=== PATIENT | male | born 1975 ===

== ENCOUNTER 2021-08-09 08:55 | Day surgery (SDC) | payer OTHER ==
[2021-08-07 16:11] VITALS: BMI 36.6
--- NOTE | 2021-08-07 16:47 | P.HPIHPCON ---
History of Present Illness H&P Date: 08/07/21 Chief Complaint: Left ureteral stone This is a 46-year-old male with history of a 6 mm left-sided proximal stone, he is symptomatically from his stone. Option of left-sided ureteroscopy with holmium laser lithotripsy versus ESWL was discussed in detail. He agreed to proceed with left-sided ureteroscopy with holmium laser. Discussed risk which includes but not limited to bleeding, infection, injury to the ureter. Discussed also with him risk from anesthesia. He understood all the risk and agreed to proceed with left-sided ureteroscopy with holmium laser lithotripsy stone basketing and stent insertion Consent for Procedure: I have explained the operation/procedure to the patient, including the risks, benefits, side effects, alternative therapies (including not receiving the proposed treatment or service), the likelihood of the patient achieving his/her goals, and potential recuperation problems for the procedure/sedation/analgesia, as well as any blood products, if indicated. I also explained to the patient the risks, benefits and side effects of the alternatives, as well as the risks related to not receiving the proposed procedure, care, treatment, or services. Past Medical History Past Medical History: GERD/Reflux, Hyperlipidemia, Hypertension History of Any Multi-Drug Resistant Organisms: None Reported Past Surgical History: No Surgical Hx Reported Additional Past Surgical History / Comment(s): EGD. Past Anesthesia/Blood Transfusion Reactions: No Reported Reaction Past Psychological History: No Psychological Hx Reported Smoking Status: Never smoker Past Alcohol Use History: Occasional Past Drug Use History: None Reported - Past Family History Father Family Medical History: Cancer Additional Family Medical History / Comment(s): Rectal cancer. Medications and Allergies Home Medications Medication Instructions Recorded Confirmed Type Evolocumab [Repatha Syringe] 0 mg SQ Q14D 08/07/21 08/07/21 History HYDROcodone/APAP 5-325MG [Jelm 1 tab PO HS 08/07/21 08/07/21 History 5-325] Ketorolac [Toradol] 10 mg PO Q6HR PRN 08/07/21 08/07/21 History Losartan Potassium 100 mg PO HS 08/07/21 08/07/21 History NIFEdipine [Procardia XL] 60 mg PO HS 08/07/21 08/07/21 History Omeprazole 20 mg PO DAILY PRN 08/07/21 08/07/21 History Rosuvastatin [Crestor] 10 mg PO HS 08/07/21 08/07/21 History Tamsulosin [Flomax] 0.4 mg PO DAILY 08/07/21 08/07/21 History Allergies Allergy/AdvReac Type Severity Reaction Status Date / Time Penicillins Allergy Rash/Hives Verified 08/07/21 16:11 Surgical - Exam - General no distress, no pain - Eyes normal ocular movement, no pale - ENT normal nares, normal mucosa - Respiratory normal expansion, normal respiratory effort Assessment and Plan Assessment: OR for left-sided ureteroscopy with holmium laser lithotripsy stone basketing and stent insertion
[~2021-08-09 08:55] MED LIST: CIPROFLOXACIN/DEXTROSE PMX 400 MG in DEXTROSE/WATER 1 200ML.BAG IVPB PRN; DEXAMETHASONE SOD PHOSPHATE 4 MG/ML 1 ML VIAL IV ONE; HYDROmorphone 0.5 MG/0.5 ML SYRINGE IVP PRN; LACTATED RINGERS 1,000 ML IV SCH; MIDAZOLAM 2 MG/2 ML VIAL IV PRN; ONDANSETRON 4 MG/2 ML VIAL IVP ONE; SCOPOLAMINE 1 MG/72 HR PATCH TRANSDERM ONE
--- NOTE | 2021-08-09 09:14 | XR ---
EXAMINATION TYPE: XR KUB DATE OF EXAM: 08/09/2021 COMPARISON: None INDICATION: Left renal stone preop TECHNIQUE: Single view abdomen upright view FINDINGS: There is a nonspecific bowel gas pattern. Air is within the colon. There is an air-fluid level within the small bowel loops within the midabdomen. Psoas margins are normal. No organomegaly is present. A 0.8 cm calcification overlies the left L4 transverse process. IMPRESSION: 1. 0.8 cm proximal left ureteral stone.
[2021-08-09] MEDS ORDERED: LACTATED RINGERS 1,000 ML IV ONE (09:23)
[2021-08-09 09:26] VITALS: TEMP 97.3
[2021-08-09] MEDS ORDERED: MIDAZOLAM 2 MG/2 ML VIAL ONE (10:38)
[2021-08-09] MEDS ORDERED: SUCCINYLCHOLINE CHLORIDE 100 MG/5 ML SYR IV ONE (10:38)
[2021-08-09] MEDS ORDERED: PROPOFOL 10 MG/ML 50 ML VIAL IV ONE (10:38)
[2021-08-09] MEDS ORDERED: fentaNYL (PF) 50 MCG/ML 2 ML AMP ONE (10:38)
[2021-08-09] MEDS ORDERED: LIDOCAINE 2% INJ 20 MG/ML (2 ML VIAL) ONE (10:38)
[2021-08-09] MEDS ORDERED: IOPAMIDOL-370 50ML BTL MISCELLANE ONE (11:00)
--- NOTE | 2021-08-09 11:39 | P.OP ---
Date of Procedure: 08/09/21 Preoperative Diagnosis: left ureteral stone Postoperative Diagnosis: Same Procedure(s) Performed: Cystoscopy, left retrograde pyelogram, ureteroscopy and stent insertion Implants: 6-Nepalese by 26 cm stent in left ureter Anesthesia: ALAN Surgeon: Tim Bray Estimated Blood Loss (ml): 5 Pathology: none sent Condition: stable Disposition: PACU Indications for Procedure: This is a 46-year-old male with history of a 6 mm left-sided proximal stone, he is symptomatically from his stone. Option of left-sided ureteroscopy with holmium laser lithotripsy versus ESWL was discussed in detail. He agreed to proceed with left-sided ureteroscopy with holmium laser. Discussed risk which includes but not limited to bleeding, infection, injury to the ureter. Discussed also with him risk from anesthesia. He understood all the risk and agreed to proceed with left-sided ureteroscopy with holmium laser lithotripsy stone basketing and stent insertion Operative Findings: Left-sided proximal ureteral stone, proximal ureteral narrowing Description of Procedure: Patient brought to the operating room, general anesthesia was induced. He was prepped and draped in sterile fashion and placed in dorsal lithotomy position. Cystoscopy fitted with a 21-Nepalese sheath was inserted per urethra, cystoscopy was performed which showed no abnormality within the bladder. Attention was then carried to the left ureteral orifice, of note the left ureteral orifice was narrowed. At this time a wire was advanced through the ureteral orifice and a ureteral balloon dilator was passed over the wire, the ureteral orifice was dilated using a ureteral balloon dilator. Next a semirigid ureteroscope was inserted through the urethra and up the left ureteral orifice, the scope was advanced to the mid ureter, but I was not able to advance the scope further, retrograde pyelogram was performed through the scope which showed a filling defect at the UPJ at the level of the radiopaque stone with mild hydronephrosis. At this time a sensor wire was advanced through the ureteroscope past the stone into the renal pelvis and the scope was removed with the wire in place. Next a 1214 access sheath was passed over the wire into the proximal ureter. At this time the flexible ureteroscope was inserted through the access sheath, I attempted to pass the scope past the proximal ureter but of note the proximal ureter was narrowed. At this time the ureteroscope was withdrawn and a ureteral balloon dilator was passed over the wire and the into the proximal ureter, the ureter was dilated using the 12-Nepalese balloon dilator. Next the flexible ureteroscope was reinserted and at this point I attempted to pass the scope past the narrowing but was still not able to, but of note there was some mucosal tearing. Given this finding decision was made to proceed with stent placement. At this time pullback ureteroscopy was performed which showed no injury to the ureter or any ureteral stone. Next a ureteral stent was passed over the wire, the proximal curl was visualized on fluoroscopy and distal curl was visualized using the cystoscope. The bladder was emptied at the end of the case. Patient tolerated procedure well was taken to recovery in stable condition
[2021-08-09 11:56] VITALS: RESP 16
--- NOTE | 2021-08-09 12:12 | FL ---
Fluoroscopy HISTORY: Stent placement 43 seconds fluoroscopy time supplied to the referring clinician. 3 intraoperative C-arm images docum ent the procedure. See dictated report from urology.
[2021-08-09 12:58] VITALS: BP 131/73; PULSE 79
[2021-08-09] MEDS ORDERED: ONDANSETRON 4 MG/2 ML VIAL ONE (13:00)
[2021-08-09] MEDS ORDERED: ONDANSETRON 4 MG/2 ML VIAL IVP ONE (13:02)
== END 2021-08-09 13:21 | disposition home or self-care (01) ==
LOC: OR 08:55
PROVIDERS: ATTEND Urology
DX: N13.2 Hydronephrosis with renal and ureteral calculous obstruction (principal); K21.9 Gastro-esophageal reflux disease without esophagitis; E78.5 Hyperlipidemia, unspecified; I10 Essential (primary) hypertension; Z79.899 Other long term (current) drug therapy; Z88.0 Allergy status to penicillin
CPT/HCPCS: 74420; 74018; 52332; C2625; C1894; C1769; J2250; J1100; J2405; J3010; J0744; J0330; J2704; Q9967; J2001

== ENCOUNTER 2021-09-06 10:21 | Day surgery (SDC) | payer OTHER ==
[2021-09-04 13:52] VITALS: BMI 36.6
--- NOTE | 2021-09-05 07:42 | P.HPIHPCON ---
History of Present Illness H&P Date: 09/05/21 Chief Complaint: Left ureteral stone This is a 46-year-old male with history of an 8 mm left-sided proximal ureteral stone, underwent ureteral stent placement on August 09. Attempted ureteroscopy at that time was unsuccessful due to ureteral narrowing. He presents today for de finitive stone management. Option of left-sided ureteroscopy with holmium laser was discussed with him. Discussed the risk which include but not limited to bleeding, infection, injury to the ureter. Discussed also risk from anesthesia. He understood all the risk and agreed to proceed left-sided ureteroscopy with holmium laser lithotripsy, stone basketing and stent removal Consent for Procedure: I have explained the operation/procedure to the patient, including the risks, benefits, side effects, alternative therapies (including not receiving the proposed treatment or service), the likelihood of the patient achieving his/her goals, and potential recuperation problems for the procedure/sedation/analgesia, as well as any blood products, if indicated. I also explained to the patient the risks, benefits and side effects of the alternatives, as well as the risks related to not receiving the proposed procedure, care, treatment, or services. Past Medical History Past Medical History: GERD/Reflux, Hyperlipidemia, Hypertension Additional Past Medical History / Comment(s): kidney stone, ureteral stent History of Any Multi-Drug Resistant Organisms: None Reported Past Surgical History: No Surgical Hx Reported Additional Past Surgical History / Comment(s): EGD, cystoscopy with ureteral stent (08/09/21) Past Anesthesia/Blood Transfusion Reactions: No Reported Reaction Past Psychological History: No Psychological Hx Reported Smoking Status: Never smoker Past Alcohol Use History: Occasional Past Drug Use History: None Reported - Past Family History Father Family Medical History: Cancer Additional Family Medical History / Comment(s): Rectal cancer. Medications and Allergies Home Medications Medication Instructions Recorded Confirmed Type Evolocumab [Repatha Syringe] 0 mg SQ Q14D 08/07/21 09/04/21 History Losartan Potassium 100 mg PO HS 08/07/21 09/04/21 History NIFEdipine [Procardia XL] 60 mg PO HS 08/07/21 09/04/21 History Omeprazole 20 mg PO DAILY PRN 08/07/21 09/04/21 History Emtricitabine/Tenofov Alafenam 1 each PO HS 09/04/21 09/04/21 History [Descovy 200-25 mg Tablet] Ezetimibe [Zetia] 10 mg PO HS 09/04/21 09/04/21 History [place]-3 Fatty Acids/Fish Oil [Fish 1 each PO DIRECTED 09/04/21 09/04/21 History Oil 1,000 mg Softgel] Allergies Allergy/AdvReac Type Severity Reaction Status Date / Time Penicillins Allergy Unknown Rash/Hives Verified 09/04/21 13:40 Surgical - Exam - General no distress, moderate pain - Eyes normal ocular movement, no pale - ENT normal nares - Respiratory normal expansion, normal respiratory effort - Abdomen Abdomen: soft, non tender - Psychiatric oriented to time, oriented to person, oriented to place Assessment and Plan Assessment: OR for left-sided ureteroscopy with holmium laser lithotripsy, stone basketing and stent removal
--- NOTE | 2021-09-06 10:58 | XR ---
EXAMINATION TYPE: XR KUB DATE OF EXAM: 09/06/2021 10:31 AM CLINICAL HISTORY: Left-sided kidney stone. TECHNIQUE: Two supine KUB images of the abdomen are obtained. COMPARISON: Abdominal x-ray August 09, 2021. FINDINGS: New double-J left ureter stent. There is 7 to 8 mm mid to lower pole left renal calculus pr ojecting just below the left 12th rib on current study may have passed retrograde from the proximal u reter on prior. Overall nonobstructive bowel gas pattern. Visualized osseous structures are intact. IMPRESSION: As above.
[2021-09-06] MEDS ORDERED: fentaNYL (PF) 50 MCG/ML 2 ML AMP ONE (13:51)
[2021-09-06] MEDS ORDERED: PROPOFOL 10 MG/ML 20 ML VIAL IV ONE (13:51)
[2021-09-06] MEDS ORDERED: LIDOCAINE 2% INJ 20 MG/ML (2 ML VIAL) ONE (13:51)
[2021-09-06] MEDS ORDERED: MIDAZOLAM 2 MG/2 ML VIAL ONE (13:51)
[2021-09-06] MEDS ORDERED: SUCCINYLCHOLINE CHLORIDE 100 MG/5 ML SYR IV ONE (13:51)
[2021-09-06 14:57] VITALS: TEMP 97.2
--- NOTE | 2021-09-06 15:10 | P.OP ---
Date of Procedure: 09/06/21 Preoperative Diagnosis: Left ureteral stone Postoperative Diagnosis: Same Procedure(s) Performed: Cystoscopy, left ureteroscopy, holmium laser lithotripsy, stone basketing and stent removal Implants: None Anesthesia: ALAN Surgeon: Tim Bray Estimated Blood Loss (ml): 5 Pathology: other (left ureteral stone) Condition: stable Disposition: PACU Indications for Procedure: This is a 46-year-old male with history of an 8 mm left-sided proximal ureteral stone, underwent ureteral stent placement on August 09. Attempted ureteroscopy at that time was unsuccessful due to ureteral narrowing. He presents today for definitive stone management. Option of left-sided ureteroscopy with holmium laser was discussed with him. Discussed the risk which include but not limited to bleeding, infection, injury to the ureter. Discussed also risk from anesthesia. He understood all the risk and agreed to proceed left-sided ureteroscopy with holmium laser lithotripsy, stone basketing and stent removal Operative Findings: Left proximal stone migrated to the lower pole Description of Procedure: Patient brought to the operating room, general anesthesia was induced. He was prepped and draped in sterile fashion and placed in a dorsal lithotomy position. Cystoscopy fitted with a 21-German sheath was inserted per urethra. The left ureteral stent was visualized and grasped and removed to the meatus. Next a sensor wire was advanced through the stent and the stent was removed with the wire place. Next a 1214 German access sheath was passed over the wire and into the proximal ureter. Next the flexibile ureteroscope was inserted through the access sheath, renoscopy was performed which showed a stone in the lower pole, using the holmium laser the stone was fragmented into small fragments, sizable fragments were removed and sent for analysis. Repeat renoscopy showed no sizable fragments or injury to the kidney. Pullback ureteroscopy was performed which showed no injury to the ureter or any ureteral fragments. The bladder was emptied at the end of the case. Patient tolerated procedure well was taken to recovery in stable condition
--- NOTE | 2021-09-06 15:22 | FL ---
EXAMINATION TYPE: FL guidance operating room DATE OF EXAM: 09/06/2021 CLINICAL HISTORY: Left-sided kidney stone. TECHNIQUE: Fluoroscopy. COMPARISON: Same-day abdominal x-ray. FINDINGS: Fluoroscopic guidance was provided during left kidney stone treatment procedure performed by Dr. Luciano. A total of 13 seconds of fluoroscopic time was utilized during the procedure and 3 sp ot images was acquired. Images acquired show advancement of catheter towards the proximal left renal calculus. IMPRESSION: As Above.
[2021-09-06 15:42] VITALS: RESP 20
[2021-09-06 16:08] VITALS: BP 119/79; PULSE 76
== END 2021-09-06 16:43 | disposition home or self-care (01) ==
LOC: OR 10:21
PROVIDERS: ATTEND Urology
DX: N20.1 Calculus of ureter (principal); Z87.442 Personal history of urinary calculi
CPT/HCPCS: 52356; 82365; 74018; C1894; C1758; C1769; J2250; J1100; J2405; J3010; J0744; J0330; J2704; J2001